=== PATIENT | female | born 1970 | race Caucasian/White ===

== ENCOUNTER 2018-07-10 20:39 | Emergency (ER) | payer MEDICAID ==
[~2018-07-10] VITALS: Ht 157.5 cm; Wt 99.8 kg
[~2018-07-10 20:39] MED LIST: VIC PO
[2018-07-10 20:44] VITALS: BP 142/80
--- NOTE | 2018-07-10 20:48 | NUR ---
PT TO GAVE URINE SAMPLE, SENT TO [facility] W/ DAUGHTER
[2018-07-10] MEDS ORDERED: NACL 0.9% 500 ML IV ONE (20:57)
[2018-07-10] MEDS ORDERED: KETOROLAC 30 MG/ML VIAL IVP ONE (21:00)
--- NOTE | 2018-07-10 21:10 | NUR ---
PT TO ER BED 9
--- NOTE | 2018-07-10 21:15 | NUR ---
PATIENT PRESENTS TO ED WITH RLQ PAIN. PT STATED SHE HAS BEEN HAVING N/V; NO FEVER AT THIS TIME. SKIN IS PINK/WARM/DRY; AAOX4 WITH EVEN AND STEADY GAIT; LUNGS CLEAR BL; HR EVEN AND REGULAR; PT DENIES ANY FEVER, CP, SOB, OR COUGH/ CONGESTION AT THIS TIME; PATIENT STATES PAIN OF 8/10 AT THIS TIME; VSS; PATIENT POSITIONED FOR COMFORT; HOB ELEVATED; BEDRAILS UP X2; BED DOWN. ER MD MADE AWARE OF PT STATUS.
[2018-07-10 21:26] LABS: APPEARANCE,URINE HAZY (CLEAR); BILIRUBIN,URINE NEGATIVE (NEGATIVE); BLOOD, URINE 3+ (NEGATIVE); COLOR,URINE STRAW (YELLOW); LEUKOCYTE ESTERASE ,URINE 1+ (NEGATIVE); NITRITE, URINE NEGATIVE (NEGATIVE); UGLUCOSE NEGATIVE (NEGATIVE)
[2018-07-10 21:46] LABS: RBC,URINE TOO NUMEROUS TO COUN /HPF (0-5); WBC,URINE 60-80 /HPF (0-5)
[2018-07-10 23:38] VITALS: BP 150/85
--- NOTE | 2018-07-10 23:38 | NUR ---
Patient discharged with v/s stable. Written and verbal after care instructions given and explained. Patient alert, oriented and verbalized understanding of instructions. Ambulatory with steady gait. All questions addressed prior to discharge. ID band removed. Patient advised to follow up with PMD. Rx of ZOFRAN 4MG ODT, TRAMADOL HYDROCHLORIDE 50MG AND MOTRIN 800MG given. Patient educated on indication of medication including possible reaction and side effects. Opportunity to ask questions provided and answered.
== END 2018-07-10 23:38 | disposition home or self-care (01) ==
LOC: MED 20:39
DX: N20.0 Calculus of kidney (principal); I10 Essential (primary) hypertension; Z79.899 Other long term (current) drug therapy
CPT/HCPCS: 74176; 81001; 81025; 87086; 96361; 96374; 99284; J1885; J7030

== ENCOUNTER 2022-05-09 18:46 | Emergency (ER) | payer MEDICAID, OTHER ==
[~2022-05-09] VITALS: Ht 157.5 cm; Wt 100.7 kg
[2022-05-09 19:09] VITALS: BP 126/86
--- NOTE | 2022-05-09 20:12 | NUR ---
Patient discharged with v/s stable. Written and verbal after care instructions given and explained. Patient alert, oriented and verbalized understanding of instructions. Ambulatory with steady gait. All questions addressed prior to discharge. ID band removed. Patient advised to follow up with PMD. Rx of IBUPROFEN AND HYDROCODONE/ACETAMINOPHEN given. Patient educated on indication of medication including possible reaction and side effects. Opportunity to ask questions provided and answered.
[2022-05-09] MEDS ORDERED: HYDROcodone/APAP 5/325 MG 1 TAB TAB PO ONE (20:35)
--- NOTE | 2022-05-09 21:05 | NUR ---
JAMAL AMBULATED TO [facility]
--- NOTE | 2022-05-09 21:09 | NUR ---
PATIETN MEDICATED PER ORDERS. TOLERATED WELL
[2022-05-09] MEDS ORDERED: IBUP-2213 PO (21:11)
[2022-05-09] MEDS ORDERED: ACET-8386 PO ×2 (21:11→21:13)
[2022-05-09 22:00] VITALS: BP 145/90
--- NOTE | 2022-05-09 22:00 | NUR ---
JAMAL EDUCATED WITH CRUTCHES. TOLERATED AMBULATION WELL
== END 2022-05-09 22:07 | disposition home or self-care (01) ==
LOC: MED 18:46
DX: S83.91XA Sprain of unspecified site of right knee, initial encounter (principal); I10 Essential (primary) hypertension; Z79.899 Other long term (current) drug therapy; W19.XXXA Unspecified fall, initial encounter; Y93.K1 Activity, walking an animal; Y92.89 Other specified places as the place of occurrence of the external cause; Y99.8 Other external cause status
CPT/HCPCS: 29505; 73562; 99283

== ENCOUNTER 2022-06-26 20:13 | Emergency (ER) | payer OTHER ==
[~2022-06-26] VITALS: Ht 157.5 cm; Wt 97.5 kg
[~2022-06-26 20:13] MED LIST changes: +ACET-8386 PO; +IBUP-2213 PO
[2022-06-26 20:20] VITALS: BP 143/80
--- NOTE | 2022-06-26 20:23 | NUR ---
TO LOBBY A/W BED AMBULATORY
--- NOTE | 2022-06-26 21:38 | NUR ---
PT TO BED 3
[2022-06-26 22:00] LABS: APPEARANCE,URINE CLEAR (CLEAR); BILIRUBIN,URINE NEGATIVE (NEGATIVE); BLOOD, URINE NEGATIVE (NEGATIVE); COLOR,URINE YELLOW (YELLOW); LEUKOCYTE ESTERASE ,URINE NEGATIVE (NEGATIVE); NITRITE, URINE NEGATIVE (NEGATIVE); PH,URINE 5.5 (5.0-9.0); UGLUCOSE NEGATIVE (NEGATIVE)
[2022-06-26 22:09] LABS: BASOPHILS # (AUTO) 0.1 K/uL (0.00-0.22); BASOPHILS % (AUTO) 0.8 % (0.0-2.0); EOSINOPHILS # (AUTO) 0.2 K/uL (0-0.4); EOSINOPHILS % (AUTO) 1.7 % (0.0-4.0); HEMATOCRIT 39.1 % (36-48); LYMPHOCYTES # (AUTO) 1.9 K/uL (2.5-16.5); LYMPHOCYTES % (AUTO) 15.4 % (20.5-51.1); MEAN CORPUSCULAR HEMOGLOBIN 29 pg (27-31); MEAN CORPUSCULAR HGB CONC 33 g/dL (33-37); MEAN CORPUSCULAR VOLUME 86.3 fL (80-94); MONOCYTES # (AUTO) 0.7 K/uL (0.8-1.0); MONOCYTES % (AUTO) 5.6 % (1.7-9.3); NEUTROPHILS # (AUTO) 9.2 K/uL (1.8-7.7); NEUTROPHILS % (AUTO) 76.5 % (42.2-75.2); PLATELET COUNT (AUTO) 438 K/uL (140-450); RED BLOOD CELL COUNT(AUTO) 4.53 MIL/uL (4.20-5.40); RED CELL DISTRIBUTION WIDTH 14.7 % (11.6-13.7); WHITE BLOOD COUNT (AUTO) 12.1 K/uL (4.8-10.8)
[2022-06-26 22:14] LABS: ALBUMIN 3.4 g/dL (3.4-5.0); ANION GAP 13.2 (8-16); CARBON DIOXIDE 24.7 mmol/L (21-32); CREATININE 0.5 mg/dL (0.6-1.3); POTASSIUM 3.9 mmol/L (3.5-5.1); TOTAL BILIRUBIN 0.3 mg/dL (0.0-1.0)
[2022-06-26] MEDS ORDERED: ALUMINUM HYD/MAG/SIMETHICONE 30 ML UDC PO ONE (22:15)
[2022-06-26] MEDS ORDERED: FAMOTIDINE 20 MG TAB PO ONE (22:15)
[2022-06-26] MEDS ORDERED: ONDANSETRON 4 MG ODT PO ONE (22:15)
[2022-06-26] MEDS ORDERED: ONDA-188 PO (23:15)
[2022-06-26] MEDS ORDERED: FAMO-90 PO (23:15)
[2022-06-27 00:08] VITALS: BP 117/69
== END 2022-06-27 00:08 | disposition home or self-care (01) ==
LOC: MED 20:13
DX: R10.13 Epigastric pain (principal); I10 Essential (primary) hypertension; Z79.899 Other long term (current) drug therapy
CPT/HCPCS: 36415; 76705; 80053; 81003; 83690; 85025; 99284; Q0092; Q0162

== ENCOUNTER 2023-12-06 09:24 | Emergency (ER) | payer OTHER ==
[~2023-12-06] VITALS: Ht 157.5 cm; Wt 86.2 kg
[~2023-12-06 09:24] MED LIST changes: -ACET-8386 PO; +ACET-8905 PO; +FAMO-90 PO; +ONDA-188 PO
[2023-12-06 09:31] VITALS: BP 127/87; PULSE 73; RESP 16; TEMP 98; O2SAT 97
[2023-12-06 09:59] LABS: APPEARANCE,URINE CLEAR (CLEAR); BILIRUBIN,URINE NEGATIVE (NEGATIVE); BLOOD, URINE NEGATIVE (NEGATIVE); COLOR,URINE YELLOW (YELLOW); LEUKOCYTE ESTERASE ,URINE 1+ (NEGATIVE); NITRITE, URINE NEGATIVE (NEGATIVE); PROTEIN,URINE NEGATIVE (NEGATIVE); UGLUCOSE NEGATIVE (NEGATIVE); UROBILINOGEN,URINE 0.2 EU/dL (0.2 - 1)
[2023-12-06] MEDS: KETOROLAC 30 MG/ML VIAL IVP ONE (10:14)
[2023-12-06 10:16] LABS: BACTERIA,URINE 10-30 (MOD) /HPF (None Seen); RBC,URINE 0 /HPF (0-5)
[2023-12-06 10:18] LABS: BASOPHILS # (AUTO) 0.1 K/uL (0.00-0.22); EOSINOPHILS # (AUTO) 0.3 K/uL (0-0.4); EOSINOPHILS % (AUTO) 3.7 % (0.0-4.0); HEMATOCRIT 39.8 % (36-48); HEMOGLOBIN 13.6 g/dL (12.0-16.0); LYMPHOCYTES # (AUTO) 1.5 K/uL (2.5-16.5); LYMPHOCYTES % (AUTO) 22.8 % (20.5-51.1); MEAN CORPUSCULAR HEMOGLOBIN 30 pg (27-31); MEAN CORPUSCULAR HGB CONC 34 g/dL (33-37); MEAN CORPUSCULAR VOLUME 87.6 fL (80-94); MONOCYTES # (AUTO) 0.4 K/uL (0.8-1.0); MONOCYTES % (AUTO) 6.1 % (1.7-9.3); NEUTROPHILS # (AUTO) 4.5 K/uL (1.8-7.7); NEUTROPHILS % (AUTO) 66.4 % (42.2-75.2); PLATELET COUNT (AUTO) 426 K/uL (140-450); RED BLOOD CELL COUNT(AUTO) 4.55 MIL/uL (4.20-5.40); RED CELL DISTRIBUTION WIDTH 14.1 % (11.6-13.7); WHITE BLOOD COUNT (AUTO) 6.8 K/uL (4.8-10.8)
[2023-12-06 10:22] VITALS: O2SAT 97
[2023-12-06 10:31] VITALS: BP 117/66; PULSE 79; RESP 16; TEMP 98; O2SAT 97
[2023-12-06 10:35] LABS: ALBUMIN 3.6 g/dL (3.4-5.0); BILIRUBIN,DIRECT 0.1 mg/dL (0.0-0.3); TOTAL BILIRUBIN 0.4 mg/dL (0.0-1.0)
[2023-12-06 10:39] LABS: ANION GAP 12.5 (8-16); CALCIUM 8.7 mg/dL (8.5-10.1); CARBON DIOXIDE 26.4 mmol/L (21-32); CREATININE 0.4 mg/dL (0.6-1.3); POTASSIUM 3.9 mmol/L (3.5-5.1)
[2023-12-06] MEDS ORDERED: OMEP40EC23 PO (11:25)
[2023-12-06] MEDS ORDERED: CIPR500T4 PO (11:25)
== END 2023-12-06 11:51 | disposition home or self-care (01) ==
LOC: MED 09:24
DX: N39.0 Urinary tract infection, site not specified (principal); R10.12 Left upper quadrant pain; I10 Essential (primary) hypertension; Z79.1 Long term (current) use of non-steroidal anti-inflammatories (NSAID); Z79.899 Other long term (current) drug therapy
CPT/HCPCS: 36415; 80048; 80076; 81001; 81025; 83690; 85025; 87086; 96374; 99283; J1885